=== PATIENT | male | born 1970 | race Caucasian/White ===

== ENCOUNTER 2017-05-19 13:33 | Inpatient (IN) | payer OTHER ==
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
[2017-05-19] MEDS: ONDANSETRON 4 MG/2 ML VIAL IVP PRN ×2 (13:45→22:42)
[2017-05-19 13:55] LABS: PLATELET COUNT 158 10^3/uL (150-400)
[2017-05-19 14:05] LABS: INR 1.12 (0.83-1.16); PROTIME(PATIENT) 14.6 SEC (12.0-15.0)
[2017-05-19] MEDS ORDERED: levETIRAcetam 1000MG/NACL 100 ML IV ONE (14:48)
[2017-05-19] MEDS ORDERED: NALOXONE HCL 0.4 MG/ML INJ IVP PRN (14:48)
[2017-05-19] MEDS ORDERED: LORazepam 2 MG/ML INJ IVP PRN (14:48)
[2017-05-19] MEDS ORDERED: TDAP ADULT 0.5 ML INJ (BOOSTRIX) IM ONE ×2 (14:53→14:55)
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
[2017-05-19] MEDS: NS 1,000 ML IV SCH (15:40)
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
[2017-05-19] MEDS: POTASSIUM Cl (KCl) 100 ML IV SCH ×3 (16:01→18:19)
[2017-05-19] MEDS: PANTOPRAZOLE SODIUM 40 MG VIAL IVP SCH (16:01)
[2017-05-19] MEDS: HYDROmorphONE/DILAUDID 1 MG/ML INJ IVP PRN ×3 (16:39→20:42)
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
[2017-05-19] MEDS ORDERED: DEXAMETHASONE 10 MG/ML VIAL IVP ONE (18:58)
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
[2017-05-19] MEDS: levETIRAcetam 500MG/NACL 100 ML IV SCH (20:43)
[2017-05-19 21:12] LABS: PLATELET COUNT 143 10^3/uL (150-400)
[2017-05-19] MEDS: ACETAMINOPHEN 650 MG SUPP PR PRN (22:32)
[2017-05-20] MEDS: HYDROmorphONE/DILAUDID 1 MG/ML INJ IVP PRN ×2 (02:00→07:04)
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
[2017-05-20] MEDS: ACETAMINOPHEN 650 MG SUPP PR PRN ×2 (07:05→15:09)
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
[2017-05-20] MEDS: levETIRAcetam 500MG/NACL 100 ML IV SCH ×2 (10:32→21:08)
[2017-05-20] MEDS: PANTOPRAZOLE SODIUM 40 MG VIAL IVP SCH (10:32)
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
--- NOTE | 2017-05-20 14:19 | ASMTCMCOM ---
CM Note CM Note Notes: Therapies recommending In-pt Rehab. Spoke to patient's re: In-pt Rehab. Family lives in [place]. Gave her info about [facility] and [facility]'s location in [place]. [facility] is following. [facility] contact: Shayy [phone]; . to make a decision before referrals will be sent. Date Signed: 05/20/2017 02:18 PM Electronically Signed By:Caridad Lala LCSW
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
[2017-05-20] MEDS: NS 1,000 ML IV SCH (15:09)
[2017-05-20] MEDS: HYDROmorphone HCL/NS 0.5 MG/ML SYR IVP PRN ×2 (19:16→21:08)
[2017-05-20] MEDS: ONDANSETRON 4 MG/2 ML VIAL IVP PRN (19:16)
[2017-05-20] MEDS: ACETAMINOPHEN 325 MG TAB PO PRN (21:08)
[2017-05-21] MEDS: NS 1,000 ML IV SCH ×3 (04:50→20:46)
[2017-05-21] MEDS: ACETAMINOPHEN 325 MG TAB PO PRN ×4 (05:13→20:46)
[2017-05-21] MEDS: ONDANSETRON 4 MG/2 ML VIAL IVP PRN (05:13)
[2017-05-21] MEDS: HYDROmorphone HCL/NS 0.5 MG/ML SYR IVP PRN ×3 (05:13→23:35)
[2017-05-21] MEDS ORDERED: BISACODYL 10 MG SUPP PR PRN (08:37)
[2017-05-21] MEDS ORDERED: LACTULOSE 20 GM/30 ML UDCUP PO PRN (08:37)
[2017-05-21] MEDS ORDERED: POLYETHYLENE GLYCOL 3350 17 GM PKT PO PRN (08:37)
[2017-05-21] MEDS ORDERED: MAGNESIUM HYDROXIDE 30 ML UDCUP PO PRN (08:37)
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
[2017-05-21] MEDS: PANTOPRAZOLE SODIUM 40 MG VIAL IVP SCH (08:41)
[2017-05-21] MEDS: levETIRAcetam 500MG/NACL 100 ML IV SCH (08:41)
[2017-05-21] MEDS: SENNOSIDES/DOCUSATE SODIUM TAB PO SCH ×2 (09:06→20:47)
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
[2017-05-21] MEDS: ENOXAPARIN 40 MG/0.4 ML SYR SC SCH (15:55)
--- NOTE | 2017-05-21 17:13 | ASMTCMCOM ---
CM Note CM Note Notes: has decided that she would like patient to go to [facility]. That info given to [facility] admissions. Date Signed: 05/21/2017 05:12 PM Electronically Signed By:Caridad Lala LCSW
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
[2017-05-21] MEDS: levETIRAcetam 500 MG TAB PO SCH (20:46)
[2017-05-22] MEDS: ACETAMINOPHEN 325 MG TAB PO PRN ×4 (02:49→23:11)
[2017-05-22] MEDS: NS 1,000 ML IV SCH (05:54)
--- NOTE | 2017-05-22 07:20 | NEUSURGPN ---
Assessment/Plan: Assessment: 46 yo male that is s/p fall while skiing with temporal and petrous skull fracture Plan: -s/p fall/CHI with skull fractures-no mass effect -neuro stable-awake and alert x 3, GCS 15 -PT/OT/ST -repeat CT head stable -no further CTs at this time -other facial/ortho/rib injuries -trauma on board as primary -OK to transfer to rehab today -call with any questions or concerns -d/w Dr Ying Subjective: Awake and alert. NAD. Eating/drinking and voiding. No f/c/n/v/d. Objective: AAOx3 bilateral eyelid ecchymosis CN II-XII Grossly intact OD reactive but sluggish OS equal and reactive MAEx4 Motor 5/5 BUE/BLE C collar on Neuro Check Frequency: per routine Urinary Catheter in Place: No Catheter Insertion Date: 05/19/17 - Physician Discussed Patient with Dr.: Ying Neurosurgery Physical Exam - Vitals, I&O, Labs I and O 05/21/17 05/22/17 05/23/17 05:59 05:59 05:59 Intake Total 2680 3223 Output Total 2310 350 Balance 370 2873 Intake: Oral (ml) 240 650 IV Infused (ml) 2440 2573 Ns 1,000 ml @ 100 mls/hr 2440 2573 IV CONT PETAR Rx#: [id number] Output: Urine (ml) 2310 350 Catheter 2310 350 Other: Intake Quantity Yes Sufficient Number of Voids Toilet 3 Number of Stools Toilet 0 Vital Signs Temp Pulse Resp BP Pulse Ox 37.2 C 76 12 136/95 H 91 L 05/22/17 04:00 05/22/17 06:00 05/22/17 06:00 05/22/17 06:00 05/22/17 06:00 Laboratory Results 05/20/17 04:00 05/20/17 04:00 ICD10 Worksheet Patient Problems: Problems Problem Status Onset Cervical transverse process fracture Acute Facial fracture Acute Rib fracture Acute Skull fracture Acute
--- NOTE | 2017-05-22 07:45 | TRAUMAPN ---
- Problem/Surgery Performed (1) Injury due to skiing accident Qualifiers: Encounter type: initial encounter Qualified Code(s): V00.328A - Other snow- ski accident, initial encounter Assessment/Plan: multiple injuries including skull fracture, facial fracture, SAH with pneumocephalus, cervical/thoracic TP fx, right rib fx 1-2 with resolved pneumothorax Clinically improving Rehab consult pending/stable for transfer from neuro/trauma surgery viewpoint will transfer to SDU and increase activity PT/OT as tolerated continue soft diet because of fx through right TMJ Subjective: awake/able to answer questions appropriately at bedside Objective: Vital Signs Temp Pulse Resp BP Pulse Ox 37.2 C 76 12 136/95 H 91 L 05/22/17 04:00 05/22/17 06:00 05/22/17 06:00 05/22/17 06:00 05/22/17 06:00 Laboratory Results 05/20/17 04:00 05/20/17 04:00 05/21/17 05/22/17 05/23/17 05:59 05:59 05:59 Intake Total 2680 3223 Output Total 2310 350 Balance 370 2873 PT 14.6 SEC (12.0-15.0) 05/19/17 13:48 INR 1.12 (0.83-1.16) 05/19/17 13:48 - C-Spine Clearance Cervical Spine Cleared: No Physical Exam - Physical Exam General Appearance: other (somnolent/answers questions appropriately) EENT: other (right facial swelling/periorbital ecchymosis/) Neck: other (remains in hard collar) Respiratory: chest non-tender, lungs clear, decreased breath sounds Cardiac/Chest: normal peripheral pulses, regular rate, rhythm, tachycardia Abdomen: normal bowel sounds, non-tender, soft, distended Male Genitalia: deferred Rectal: deferred Skin: normal color, warm/dry Extremities: normal range of motion, non-tender Neuro/Psych: no motor/sensory deficits, oriented x 3, depressed affect, other ( amnestic for events/detailed cognitive evaluation not performed)
[2017-05-22] MEDS: PANTOPRAZOLE SODIUM 40 MG TAB PO SCH (09:29)
[2017-05-22] MEDS: ENOXAPARIN 40 MG/0.4 ML SYR SC SCH (09:29)
[2017-05-22] MEDS: levETIRAcetam 500 MG TAB PO SCH ×2 (09:29→20:44)
[2017-05-22] MEDS: SENNOSIDES/DOCUSATE SODIUM TAB PO SCH ×2 (09:30→20:44)
[2017-05-22 10:28] LABS: PLATELET COUNT 103 10^3/uL (150-400)
--- NOTE | 2017-05-22 13:36 | ASMTCMCOM ---
CM Note CM Note Notes: Patient is ready to go to inpatient rehab. We are waiting on insurance authorization. Bridgett Novoa will call as soon as she hears from them. CM will follow. Date Signed: 05/22/2017 01:35 PM Electronically Signed By:Radha Dempsey LCSW
--- NOTE | 2017-05-22 15:32 | ASMTCMCOM ---
CM Note CM Note Notes: Bridgett from inpatient rehab called and she did get the insurance auth for patient. Patient is not feeling well today and states he would like to go tomorrow. Dr. Pepper was informed patient has been authorized for inpatient rehab. Dr. Pepper will meet with patient in the morning and patient will most likely transfer in the morning. Transport will be set up when we have the transfer of care summary. CM will follow. Date Signed: 05/22/2017 03:31 PM Electronically Signed By:Radha Dempsey LCSW
--- NOTE | 2017-05-22 17:16 | SOAPPROG ---
SOAP Progress Note Assessment/Plan: Assessment: Pt with multiple R sided facial fractures. R minimally displaced tripod. It is very minimally rotated. Talked with pt and about obs vs. surgery. I tend to think it will heal well on its own without a significant malar depression. We elected to wait for now. Should f/u with me in 1 week (assuming out of rehab) for re-eval. Temporal bone fx: audio done today, showed normal hearing on the R, and a mild to mod CHL on the L with a type C tymp on this side. Likely related to hemotympanum on that side. WRS excellent Au. Rec repeat audio in a month. Also needs to do soft diet for comfort x 6 weeks, would rec not sleeping on R side for a month or so also. He is on abx and rec continue for a week total d/t sinus fxs. I think would be reasonable to see optho again within a few weeks to recheck. Please call with any other questions or concerns. Plan: 05/22/17 17:11 05/22/17 17:20 Subjective: Doing better, still with pain in face and neck. c/o muffled hearing on the L. Denies sig diplopia. Says sometimes feels a little blurry on R. Opening jaw ok, though mild pain Objective: AFVSS 1L, 100% sats R ecchymosis and edema though latter sig improved FN intact OP clear, class I occlusion No significant malar depression on the R. ecchymosis of R periorbital region, seems to have some mild proptosis. EOMI, no pain with eye movement Attempted 512k TF: at first seemed to lateralize to the R then said wasn't sure. + rinne AU Vital Signs Temp Pulse Resp BP Pulse Ox 37.1 C 76 18 143/71 H 98 05/22/17 16:00 05/22/17 16:00 05/22/17 16:00 05/22/17 16:00 05/22/17 16:00 Laboratory Results 05/22/17 09:40 05/22/17 09:40 05/21/17 05/22/17 05/23/17 05:59 05:59 05:59 Intake Total 2680 3223 Output Total 2310 350 Balance 370 2873 PT 14.6 SEC (12.0-15.0) 02/18/18 13:48 INR 1.12 (0.83-1.16) 05/19/17 13:48 ICD10 Worksheet Patient Problems: Problems Problem Status Onset Cervical transverse process fracture Acute Facial fracture Acute Injury due to skiing accident Acute Rib fracture Acute Skull fracture Acute
--- NOTE | 2017-05-22 17:40 | SOAPPROG ---
Downtime Inpatient MD Late Entry SOAP Note: Hct down to 31.7 from 37.9 No active ongoing blood loss will check CXR to exclude delayed right hemothorax S MD Shantelle, FACS
[2017-05-22] MEDS ORDERED: AMOXICILLIN/CLAVULANATE POT 875/125 MG TAB PO SCH (21:00)
[2017-05-23] MEDS: ACETAMINOPHEN 325 MG TAB PO PRN (06:23)
[2017-05-23] MEDS: NS 1,000 ML IV SCH (06:23)
[2017-05-23 07:48] VITALS: BP 146/91; PULSE 74; RESP 13; TEMP 98.4; O2SAT 95
--- NOTE | 2017-05-23 07:51 | PDIAF ---
- Diagnosis Diagnosis: facial trauma, SAH, skull fracture, rib fractures, orbital wall fractures Code Status: Full Code - Medication Management Discharge Medications: Medications to Continue on Transfer NK [No Known Home Meds] 05/19/17 [Last Taken Unknown] Discharge Medications: Refer to the Discharge Home Medication list for PRN reason. - Orders Services needed: Registered Nurse, Certified Home School Teacher, Physical Therapy, Occupational Therapy Diet Texture: Dysphagia 2 - Mechanically Altered - Chopped, Ground, Dysphagia 1 - Pureed, Thin Liquids - Follow Up Care Current Providers and Referrals: Patient,NotPresent [Primary Care Provider] - As per Instructions Laura Stephens MD [Medical Doctor] - follow up in 1 week Jonathan Friedman MD [Medical Doctor] - follow up in 1 week Jani Arvizu MD [Medical Doctor] - (as needed if issues ) Oleksandr Ying MD [Medical Doctor] - (call if any persistent headache or neurological issues )
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
--- NOTE | 2017-05-23 08:32 | PDIAF ---
- Diagnosis Diagnosis: facial trauma, SAH, skull fracture, rib fractures, orbital wall fractures Code Status: Full Code - Medication Management Discharge Medications: Medications to Continue on Transfer Acetaminophen [Tylenol 325mg (*)] 650 mg PO Q6H PRN tab 05/23/17 [Last Taken Unknown] Enoxaparin [Lovenox 40 MG (*)] 40 mg SC DAILY syr 05/23/17 [Last Taken Unknown] LORazepam [Ativan inj 2 mg/ml (*)] 1 - 2 mg IVP Q2HRS PRN inj 05/23/17 [Last Taken Unknown] Ondansetron HCl Pf [Zofran 4 mg Inj (*)] 4 mg IVP Q4HRS PRN vial 05/23/17 [ Last Taken Unknown] Polyethylene Glycol 3350 [Miralax 17 gm (*)] 17 gm PO DAILY PRN pkt 05/23/17 [ Last Taken Unknown] Sennosides/Docusate Sodium [Senokot-S] 1 - 2 tab PO BID tab 05/23/17 [Last Taken Unknown] levETIRAcetam [Keppra 500 mg (*)] 500 mg PO BID tab 05/23/17 [Last Taken Unknown] Discharge Medications: Refer to the Discharge Home Medication list for PRN reason. - Orders Services needed: Registered Nurse, Certified Model Builder, Physical Therapy, Occupational Therapy Diet Texture: Dysphagia 2 - Mechanically Altered - Chopped, Ground, Dysphagia 1 - Pureed, Thin Liquids - Follow Up Care Current Providers and Referrals: Oleksandr Ying MD [Medical Doctor] - (call if any persistent headache or neurological issues ) Jani Arvizu MD [Medical Doctor] - (as needed if issues ) Laura Stephens MD [Medical Doctor] - follow up in 1 week Patient,NotPresent [Primary Care Provider] - As per Instructions Jonathan Friedman MD [Medical Doctor] - follow up in 1 week
[2017-05-23] MEDS: PANTOPRAZOLE SODIUM 40 MG TAB PO SCH (09:02)
[2017-05-23] MEDS: levETIRAcetam 500 MG TAB PO SCH (09:02)
[2017-05-23] MEDS: SENNOSIDES/DOCUSATE SODIUM TAB PO SCH (09:02)
[2017-05-23] MEDS: ENOXAPARIN 40 MG/0.4 ML SYR SC SCH (09:03)
[2017-05-25] MEDS ORDERED: LIDOCAINE 4%/MENTHOL 1% PATCH TD SCH (11:30)
[2017-05-25] MEDS ORDERED: PATCH REMOVAL 1 EA PATCH TD SCH (21:00)
== END 2017-05-23 11:15 | DRG 964 ==
LOC: EDAGE → EDBD 13:33 → F2N 15:03
PROVIDERS: ADMIT Surgery; ATTEND Surgery
DX: S06.6X9A Traumatic subarachnoid hemorrhage with loss of consciousness of unspecified duration, initial encounter (principal); S02.19XA Other fracture of base of skull, initial encounter for closed fracture; S12.500A Unspecified displaced fracture of sixth cervical vertebra, initial encounter for closed fracture; S12.600A Unspecified displaced fracture of seventh cervical vertebra, initial encounter for closed fracture; S22.019A Unspecified fracture of first thoracic vertebra, initial encounter for closed fracture; S22.029A Unspecified fracture of second thoracic vertebra, initial encounter for closed fracture; S22.039A Unspecified fracture of third thoracic vertebra, initial encounter for closed fracture; S22.079A Unspecified fracture of T9-T10 vertebra, initial encounter for closed fracture; S22.41XA Multiple fractures of ribs, right side, initial encounter for closed fracture; S27.1XXA Traumatic hemothorax, initial encounter; S02.81XA Fracture of other specified skull and facial bones, right side, initial encounter for closed fracture; S02.40DA Maxillary fracture, left side, initial encounter for closed fracture; R40.2411 Glasgow coma scale score 13-15, in the field [EMT or ambulance]; V00.322A Snow-skier colliding with stationary object, initial encounter; Y92.838 Other recreation area as the place of occurrence of the external cause; Y93.23 Activity, snow (alpine) (downhill) skiing, snowboarding, sledding, tobogganing and snow tubing
CPT/HCPCS: 82947-QW; 92523-GN; 92610-GN; 97112-GP; 97116-GP; 97162-GP; 97166-GO; 97535-GO; G0480; J1100; J1170; J1650; J1953; J2060; J2405; J3480; L0172

== ENCOUNTER 2017-05-22 14:59 | Inpatient (IN) | payer OTHER ==
[2017-05-23] MEDS ORDERED: BISACODYL 10 MG SUPP PR PRN (12:23)
[2017-05-23] MEDS: traMADol 50 MG TAB PO PRN ×3 (13:27→21:57)
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
--- NOTE | 2017-05-23 14:02 | PDOREHIP ---
Admission [facility] - Admission - 3 Day Assessment Period Admission Date/Day 1: 05/23/17 Day 2: 05/24/17 Day 3: 05/25/17 - Active Diagnoses Comorbidities and Co-existing Conditions at Admission: 38107. None of the Above - Skin Conditions Unhealed Pressure Ulcer (1 or more/Stage 1 or >)-Admission: 0. No
[2017-05-23] MEDS ORDERED: POLYETHYLENE GLYCOL 3350 17 GM PKT PO PRN (14:29)
[2017-05-23] MEDS ORDERED: traZODone 50 MG TAB PO PRN (14:32)
[2017-05-23] MEDS: ACETAMINOPHEN 325 MG TAB PO PRN (15:55)
[2017-05-23] MEDS: levETIRAcetam 500 MG TAB PO SCH (20:52)
[2017-05-24] MEDS: ACETAMINOPHEN 325 MG TAB PO PRN ×4 (01:02→22:30)
[2017-05-24] MEDS: traMADol 50 MG TAB PO PRN (01:43)
[2017-05-24] MEDS ORDERED: traMADol 50 MG TAB PO ONE (02:30)
[2017-05-24] MEDS: ONDANSETRON DISINTEGRATING 4 MG TAB PO PRN ×2 (03:04→16:12)
[2017-05-24] MEDS ORDERED: oxyCODONE IR 5 MG TAB PO PRN (05:42)
[2017-05-24] MEDS ORDERED: ONDANSETRON DISINTEGRATING 4 MG TAB PO ONE (08:30)
[2017-05-24] MEDS ORDERED: oxyCODONE IR 5 MG TAB PO ONE (08:30)
[2017-05-24] MEDS: levETIRAcetam 500 MG TAB PO SCH ×2 (09:14→20:19)
--- NOTE | 2017-05-24 09:21 | SOAPPROG ---
SOAP Progress Note Assessment/Plan: Assessment: 46-year-old man with balance and coordination deficits following traumatic brain injury, subarachnoid hemorrhages, and facial and cervical and thoracic spinal transverse process fractures on 05/19/2017: * Debility with balance and gait impairment following TBI, affecting mobility and ADLs. * PT and OT to optimize mobility and activities of daily living, towards the independent or modified independent level for discharge to home. * Cognitive effects of TBI: * Assessment and treatment per Speech and Language Pathology. * He will have a low stimulation and he will be encouraged to have adequate brain rest and adequate sleep. * Pain management: * Inadequate pain control with tramadol and acetaminophen. * Tramadol may be causing vomiting. * Initiated oxycodone 05/21/2017.. * Will start amitriptyline tonight, 05/24/2017, to improve sleep and as headache prophylaxis. Stable conditions: * Cervical and thoracic transverse process fractures. * Continue cervical collar until cleared by Neurosurgery; likely 6 weeks. * Temporal bone fractures. Pureed diet. Follow up with Otolaryngology after his discharge. * Orbital wall fractures with no ocular injury. He denies diplopia. Follow up with Ophthalmology after discharge. * Headache, nausea and vomiting morning of 05/24/2017. Sent for head CT which ruled out worsening intracranial hemorrhage. * Anemia, likely due to extensive bruising plus hydration. * Improving on CBC 2 06/18/2017. * Thrombocytopenia, which has been progressive. * Resolved on CBC 2 06/18/2017. * Prophylaxis. He does not have hemiplegia or paralysis, and he has been mobile reportedly ambulating up to 300 feet. He is on enoxaparin as ordered out of the hospital. Will . continue anticoagulation until he is consistently ambulating 150 feet or more 3 times a day or more. In an otherwise young healthy man, there is no indication for GI prophylaxis. Followup after discharge with neurosurgeon, Dr. Ying; natural resource technician, Dr. Stephens; and barrel raiser, Dr. Friedman. 05/24/17 11:30 Subjective: Had pain overnight which interfered with sleep. Pain is a throbbing headache as well as right-sided facial pain and neck pain. Also had nausea, and vomited large quantities this morning. Oxycodone was added for improved pain control this morning. He is not aware of any specific neurologic change however he feels fatigued. No abdominal pain. No fevers, chills, cough, dyspnea. Objective: Vital Signs Temp Pulse Resp BP Pulse Ox 36.6 C 59 L 16 152/88 H 91 L 05/24/17 09:10 05/24/17 09:10 05/24/17 09:10 05/24/17 09:10 05/24/17 09:10 05/23/17 05/24/17 05/25/17 05:59 05:59 05:59 Intake Total 925 Output Total 500 Balance 425 - Time Spent With Patient Time Spent With Patient: Greater than 35 min floor time today including coordination of care, review of head CT result and counseling patient and family. Physical Exam - Physical Exam General Appearance: WD/WN, alert, no apparent distress Respiratory: normal breath sounds, decreased breath sounds (RLL), No crackles, No rhonchi, No wheezing Cardiac/Chest: regular rate, rhythm, No edema, No diastolic murmur, No systolic murmur Skin: normal color, warm/dry, other (Extensive bruising especially over right side of face. Right upper and lower eyelids with ecchymosis and swelling, and the ptosis due to swelling.) Neuro/Psych: no motor/sensory deficits, alert, normal mood/affect, other (No pronator drift), No abnormal advice nurse II-XII, No aphasia ICD10 Worksheet Patient Problems: Problems Problem Status Onset Cervical transverse process fracture Acute Facial fracture Acute Injury due to skiing accident Acute Rib fracture Acute Skull fracture Acute
[2017-05-24 10:09] LABS: PLATELET COUNT 154 10^3/uL (150-400)
[2017-05-24] MEDS: ENOXAPARIN 40 MG/0.4 ML SYR SC SCH (11:22)
[2017-05-24] MEDS: oxyCODONE IR 5 MG TAB PO PRN ×3 (12:52→19:33)
[2017-05-24] MEDS: SENNOSIDES/DOCUSATE SODIUM TAB PO PRN ×2 (16:13→20:18)
[2017-05-24] MEDS: AMITRIPTYLINE HCL 25 MG TAB PO SCH (20:19)
[2017-05-24] MEDS ORDERED: AMITRIPTYLINE HCL 50 MG TAB PO SCH (21:00)
[2017-05-25] MEDS: oxyCODONE IR 5 MG TAB PO PRN ×5 (05:44→23:28)
[2017-05-25] MEDS: ACETAMINOPHEN 325 MG TAB PO PRN ×3 (05:44→19:14)
[2017-05-25] MEDS: SENNOSIDES/DOCUSATE SODIUM TAB PO PRN ×2 (08:40→20:18)
[2017-05-25] MEDS: levETIRAcetam 500 MG TAB PO SCH ×2 (08:40→20:12)
[2017-05-25] MEDS: ENOXAPARIN 40 MG/0.4 ML SYR SC SCH (08:40)
--- NOTE | 2017-05-25 10:54 | SOAPPROG ---
SOAP Progress Note Assessment/Plan: A/P 46-year-old man with balance and coordination deficits following traumatic brain injury, subarachnoid hemorrhages, and facial and cervical and thoracic spinal transverse process fractures on 05/19/2017: * Debility with balance and gait impairment following TBI, affecting mobility and ADLs. * PT and OT to optimize mobility and activities of daily living, towards the independent or modified independent level for discharge to home. * Cognitive effects of TBI: * Assessment and treatment per Speech and Language Pathology. * He will have a low stimulation and he will be encouraged to have adequate brain rest and adequate sleep. * Pain management: * Inadequate pain control with tramadol and acetaminophen. * Tramadol may be causing vomiting. * Initiated oxycodone 05/21/2017.. * Will start amitriptyline tonight, 05/24/2017, to improve sleep and as headache prophylaxis. Stable conditions: * Cervical and thoracic transverse process fractures. * Continue cervical collar until cleared by Neurosurgery; likely 6 weeks. * Temporal bone fractures. Pureed diet. Follow up with Otolaryngology after his discharge. * Orbital wall fractures with no ocular injury. He denies diplopia. Follow up with Ophthalmology after discharge. * Headache, nausea and vomiting morning of 05/24/2017. Sent for head CT which ruled out worsening intracranial hemorrhage. * Anemia, likely due to extensive bruising plus hydration. * Improving on CBC 2 06/18/2017. * Thrombocytopenia, which has been progressive. * Resolved on CBC 2 06/18/2017. * Prophylaxis. He does not have hemiplegia or paralysis, and he has been mobile reportedly ambulating up to 300 feet. He is on enoxaparin as ordered out of the hospital. Will . continue anticoagulation until he is consistently ambulating 150 feet or more 3 times a day or more. In an otherwise young healthy man, there is no indication for GI prophylaxis. Followup after discharge with neurosurgeon, Dr. Ying; whip operator, Dr. Stephens; and pelt inspector, Dr. Friedman. Today's Plan - Pt working well with therapy - Having some increased pain at times especially when laying flat - just feels like all the fractures start ' swelling' . reviewed pt's Head CT and no new concerning changes with regards to fx/ hydrocephalus per the report. Will add lidoderm patches for his spine area to see if this helps with some of the pain. 05/25/17 10:50 Subjective: Feeling pretty good overall - The pain is intermittent and can get pretty bad. The nausea seems to be better than it was. no new neurologic changes. Has a pretty good appetite. no fevers/chills. Objective: Vital Signs Temp Pulse Resp BP Pulse Ox 36.8 C 68 20 153/95 H 91 L 05/25/17 06:58 05/25/17 06:58 05/25/17 06:58 05/25/17 06:58 05/25/17 06:58 Laboratory Results 05/24/17 08:05 05/24/17 05/25/17 05/26/17 05:59 05:59 05:59 Intake Total 925 536 160 Output Total 500 Balance 425 536 160 Physical Exam - Physical Exam General Appearance: alert, no apparent distress EENT: other (multiple ecchymosis over his face) Respiratory: lungs clear, normal breath sounds Abdomen: non-tender, soft Neuro/Psych: alert, normal mood/affect ICD10 Worksheet Patient Problems: Problems Problem Status Onset Cervical transverse process fracture Acute Facial fracture Acute Injury due to skiing accident Acute Rib fracture Acute Skull fracture Acute
[2017-05-25] MEDS: ONDANSETRON DISINTEGRATING 4 MG TAB PO PRN (19:26)
[2017-05-25] MEDS: AMITRIPTYLINE HCL 25 MG TAB PO SCH (20:12)
[2017-05-26] MEDS: oxyCODONE IR 5 MG TAB PO PRN ×2 (05:29→12:45)
[2017-05-26] MEDS: ENOXAPARIN 40 MG/0.4 ML SYR SC SCH (08:25)
[2017-05-26] MEDS: POLYETHYLENE GLYCOL 3350 17 GM PKT PO SCH (08:25)
[2017-05-26] MEDS: levETIRAcetam 500 MG TAB PO SCH ×2 (08:25→20:34)
[2017-05-26] MEDS: ACETAMINOPHEN 325 MG TAB PO PRN ×2 (08:27→15:25)
[2017-05-26] MEDS ORDERED: SENNOSIDES 1 TAB PO SCH (09:00)
--- NOTE | 2017-05-26 09:36 | SOAPPROG ---
SOAP Progress Note Assessment/Plan: A/P 46-year-old man with balance and coordination deficits following traumatic brain injury, subarachnoid hemorrhages, and facial and cervical and thoracic spinal transverse process fractures on 05/19/2017: * Debility with balance and gait impairment following TBI, affecting mobility and ADLs. * PT and OT to optimize mobility and activities of daily living, towards the independent or modified independent level for discharge to home. * Cognitive effects of TBI: * Assessment and treatment per Speech and Language Pathology. * He will have a low stimulation and he will be encouraged to have adequate brain rest and adequate sleep. * Pain management: * Inadequate pain control with tramadol and acetaminophen. * Tramadol may be causing vomiting. * Initiated oxycodone 05/21/2017.. * Will start amitriptyline tonight, 05/24/2017, to improve sleep and as headache prophylaxis. Stable conditions: * Cervical and thoracic transverse process fractures. * Continue cervical collar until cleared by Neurosurgery; likely 6 weeks. * Temporal bone fractures. Pureed diet. Follow up with Otolaryngology after his discharge. * Orbital wall fractures with no ocular injury. He denies diplopia. Follow up with Ophthalmology after discharge. * Headache, nausea and vomiting morning of 05/24/2017. Sent for head CT which ruled out worsening intracranial hemorrhage. * Anemia, likely due to extensive bruising plus hydration. * Improving on CBC 2 06/18/2017. * Thrombocytopenia, which has been progressive. * Resolved on CBC 2 06/18/2017. * Prophylaxis. He does not have hemiplegia or paralysis, and he has been mobile reportedly ambulating up to 300 feet. He is on enoxaparin as ordered out of the hospital. Will . continue anticoagulation until he is consistently ambulating 150 feet or more 3 times a day or more. In an otherwise young healthy man, there is no indication for GI prophylaxis. Followup after discharge with neurosurgeon, Dr. Ying; blender machine operator, Dr. Stephens; and medical services coordinator, Dr. Friedman. Today's Plan - will add relistor today if patient is unable to have a bm- likely secondary to combination but also induced by recent change to opioids. Pt reporting some WAHL although this is responding to pain meds and position management. No associated with new neurologic changes - Will talk with Surgeon on Saturday about consideration of adding NSAIDS as this may be more beneficial for many aspects of his pain 05/26/17 09:32 Subjective: Doing Ok right now - Had a little rougher night but also had a busy day with many visitors yesterday. Realizing the importance of keeping the environment a little quieter. Having some WHAL's - Seem to be more of a "bone achiness" on the right side of his head. Objective: Vital Signs Temp Pulse Resp BP Pulse Ox 36.8 C 70 18 155/95 H 94 05/26/17 06:59 05/26/17 06:59 05/26/17 06:59 05/26/17 06:59 05/26/17 06:59 Laboratory Results 05/24/17 08:05 05/25/17 05/26/17 05/27/17 05:59 05:59 05:59 Intake Total 536 520 236 Balance 536 520 236 Physical Exam - Physical Exam General Appearance: alert, no apparent distress EENT: other (ptosis of the right eyelid able to open slightly - per this is improved. ) Respiratory: lungs clear, normal breath sounds Cardiac/Chest: regular rate, rhythm Abdomen: normal bowel sounds, non-tender Skin: other (bruising on the right side of his face today) Neuro/Psych: normal mood/affect ICD10 Worksheet Patient Problems: Problems Problem Status Onset Cervical transverse process fracture Acute Facial fracture Acute Injury due to skiing accident Acute Rib fracture Acute Skull fracture Acute
[2017-05-26] MEDS: LIDOCAINE 4%/MENTHOL 1% PATCH TD SCH (12:40)
[2017-05-26] MEDS ORDERED: METHYLNALTREXONE BROMIDE 12 MG/0.6 ML INJ SC ONE (16:15)
[2017-05-26] MEDS: AMITRIPTYLINE HCL 25 MG TAB PO SCH (20:34)
[2017-05-26] MEDS: PATCH REMOVAL 1 EA PATCH TD SCH (20:46)
[2017-05-27] MEDS ORDERED: SENNOSIDES 1 TAB PO PRN (07:19)
[2017-05-27] MEDS: POLYETHYLENE GLYCOL 3350 17 GM PKT PO SCH (08:24)
[2017-05-27] MEDS: levETIRAcetam 500 MG TAB PO SCH ×2 (08:25→20:19)
[2017-05-27] MEDS: ENOXAPARIN 40 MG/0.4 ML SYR SC SCH (08:32)
[2017-05-27] MEDS: LIDOCAINE 4%/MENTHOL 1% PATCH TD SCH (10:00)
--- NOTE | 2017-05-27 12:50 | SOAPPROG ---
SOAP Progress Note Assessment/Plan: Assessment: 46-year-old man with balance and coordination deficits following traumatic brain injury, subarachnoid hemorrhages, and facial and cervical and thoracic spinal transverse process fractures on 05/19/2017: * Debility with balance and gait impairment following TBI, affecting mobility and ADLs. * Initial functional independence 93. Independent with bed mobility and transfers. Negotiated 18 stairs with 1 rail. Needs cues to stay on track. Does ADLs with supervision and self setup, needing cues. Needs assist to change cervical collars for showering. * Continue PT and OT to optimize mobility and activities of daily living, towards the independent or modified independent level for discharge to home. * Cognitive effects of TBI: * Mild to moderate decreased attention and executive function. * Continue speech and language pathology. * Pain management: * Adequate with p.r.n. Oxycodone. Using much less yesterday 05/26/2017 compared to previous days * Started amitriptyline tonight, 05/24/2017, to improve sleep and as headache prophylaxis. * Calf tenderness. Get ultrasound to rule out DVT. Stable conditions: * Cervical and thoracic transverse process fractures. * Continue cervical collar until cleared by Neurosurgery; likely 6 weeks. * Temporal bone fractures. Pureed diet. Follow up with Otolaryngology after his discharge. * Orbital wall fractures with no ocular injury. He denies diplopia. Follow up with Ophthalmology after discharge. * Headache, nausea and vomiting morning of 05/24/2017. Sent for head CT which ruled out worsening intracranial hemorrhage. * Anemia, likely due to extensive bruising plus hydration. * Improving on CBC 2 06/18/2017. * Thrombocytopenia, which has been progressive. * Resolved on CBC 2 06/18/2017. * Prophylaxis. He does not have hemiplegia or paralysis, and he has been mobile reportedly ambulating up to 300 feet. He is on enoxaparin as ordered out of the hospital. Will . continue anticoagulation until he is consistently ambulating 150 feet or more 3 times a day or more. In an otherwise young healthy man, there is no indication for GI prophylaxis. Followup after discharge with neurosurgeon, Dr. Ying; clearing house clerk, Dr. Stephens; and mutual fund accountant, Dr. Friedman. Attended staffing, 15 min. Discussed with case management, nursing, dietitian, PT, OT, MIXING MACHINE ATTENDANT. Set discharge date for 05/29/2017. Will have outpatient MIXING MACHINE ATTENDANT regarding cognition and OT regarding shoulder pain and range of motion. 05/27/17 12:43 Subjective: Complains of left calf thigh and buttock pain. It feels better when he gets up and moves, worse with prolonged sitting or lying down. No cough or dyspnea, no fevers or chills. Has facial pain and feels that his teeth are sensitive especially the right maxillary teeth. Objective: Vital Signs Temp Pulse Resp BP Pulse Ox 36.6 C 72 14 126/90 H 91 L 05/27/17 08:00 05/27/17 08:00 05/27/17 08:00 05/27/17 08:00 05/27/17 08:00 Laboratory Results 05/24/17 08:05 05/26/17 05/27/17 05/28/17 05:59 05:59 05:59 Intake Total 520 893 150 Balance 520 893 150 - Time Spent With Patient Time Spent With Patient: Greater than 35 min staff time today, including more than 50% of time in coordination of care during staffing meeting, and counseling patient. Physical Exam - Physical Exam General Appearance: WD/WN, alert, no apparent distress Respiratory: No respiratory distress, No accessory muscle use Cardiac/Chest: No edema Skin: normal color, warm/dry Extremities: calf tenderness (On left) Neuro/Psych: no motor/sensory deficits, alert, normal mood/affect, oriented x 3 ICD10 Worksheet Patient Problems: Problems Problem Status Onset Cervical transverse process fracture Acute Facial fracture Acute Injury due to skiing accident Acute Rib fracture Acute Skull fracture Acute
[2017-05-27] MEDS: AMITRIPTYLINE HCL 25 MG TAB PO SCH (20:19)
[2017-05-27] MEDS: PATCH REMOVAL 1 EA PATCH TD SCH (20:22)
[2017-05-27] MEDS: ACETAMINOPHEN 325 MG TAB PO PRN (20:25)
[2017-05-28] MEDS: ENOXAPARIN 40 MG/0.4 ML SYR SC SCH (08:13)
[2017-05-28] MEDS: LIDOCAINE 4%/MENTHOL 1% PATCH TD SCH (08:14)
[2017-05-28] MEDS: POLYETHYLENE GLYCOL 3350 17 GM PKT PO SCH (08:45)
[2017-05-28] MEDS: levETIRAcetam 500 MG TAB PO SCH ×2 (08:45→20:02)
[2017-05-28] MEDS: ACETAMINOPHEN 325 MG TAB PO PRN (10:39)
[2017-05-28] MEDS: oxyCODONE IR 5 MG TAB PO PRN ×2 (11:31→20:03)
--- NOTE | 2017-05-28 13:18 | SOAPPROG ---
SOAP Progress Note Assessment/Plan: Assessment: 46-year-old man with balance and coordination deficits following traumatic brain injury, subarachnoid hemorrhages, and facial and cervical and thoracic spinal transverse process fractures on 05/19/2017: * Debility with balance and gait impairment following TBI, affecting mobility and ADLs. * Initial functional independence 93. Independent with bed mobility and transfers. Negotiated 18 stairs with 1 rail. Needs cues to stay on track. Does ADLs with supervision and self setup, needing cues. Needs assist to change cervical collars for showering. * Continue PT and OT to optimize mobility and activities of daily living, towards the independent or modified independent level for discharge to home. * Cognitive effects of TBI: * Mild to moderate decreased attention and executive function. * Continue speech and language pathology. * Pain management: * Adequate with p.r.n. Oxycodone. Used much less 05/26/2017 compared to previous days; increased pain lower extremities since 05/27/2017 c/w possible L- spine radiculopathy or stenosis. * Started amitriptyline 05/24/2017, to improve sleep and as headache prophylaxis. Sleep and WAHL improved. 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 * D/W Neurosurgery, Dr. Ying. Advises high-dose NSAID or dexamethasone. * Prescribed ibuprofen 800 mg Q 8 hr, first dose tonight 05/28/2017. * If no relief, will prescribe dexamethasone tomorrow and for several days afte discharge. * Calf tenderness. * Ultrasound ruled out DVT 05/27/2016. Hot flashes, chills and sweats. * No obvious signs or symptoms of infectious etiology. CBC with minimal elevation o fWBCs * Laboratory evaluation for infection or metabolic/hormonal abnormality: normal TSH, free T4, prolactin, testosterone, BMP. Stable conditions: * Cervical and thoracic transverse process fractures. * Continue cervical collar until cleared by Neurosurgery; likely 6 weeks. * Temporal bone fractures. Pureed diet. Follow up with Otolaryngology after his discharge. * Orbital wall fractures with no ocular injury. He denies diplopia. Follow up with Ophthalmology after discharge. * Headache, nausea and vomiting morning of 05/24/2017. Sent for head CT which ruled out worsening intracranial hemorrhage. * Anemia, likely due to extensive bruising plus hydration. * Improving on CBC 2 06/18/2017. * Thrombocytopenia, which has been progressive. * Resolved on CBC 2 06/18/2017. * Prophylaxis. He does not have hemiplegia or paralysis, and he has been mobile reportedly ambulating up to 300 feet. He is on enoxaparin as ordered out of the hospital. Will . continue anticoagulation until he is consistently ambulating 150 feet or more 3 times a day or more. In an otherwise young healthy man, there is no indication for GI prophylaxis. Followup after discharge with neurosurgeon, Dr. Ying; log peeler, Dr. Stephens; and ophthalmic technologist, Dr. Friedman. Attended staffing, 15 min. Discussed with case management, nursing, dietitian, PT, OT, GREY INSPECTOR. Set discharge date for 05/29/2017. Will have outpatient GREY INSPECTOR regarding cognition and OT regarding shoulder pain and range of motion. 05/27/17 12:43 05/28/17 13:07 05/28/17 21:20 Subjective: Complains of gluteal, posterior thigh a and posterior calf pain intermittently. Pain is worst with sitting. Standing and walking gives relief. Lying supine does not give relief. Does not notice loss of sensation or weakness. Also has had has been having hot flashes and sweats. Denies cough, dyspnea, nausea, vomiting, constipation, diarrhea, dysuria, or urinary frequency. Headaches overall are better. Generally sleeping well but awakens with pain in the lower extremities which is relieved after walking and then he can retain sleep. Objective: Vital Signs Temp Pulse Resp BP Pulse Ox 36.7 C 91 18 123/88 H 94 05/28/17 10:35 05/28/17 11:37 05/28/17 11:37 05/28/17 11:37 05/28/17 11:37 Laboratory Results 05/24/17 08:05 05/27/17 05/28/17 05/29/17 05:59 05:59 05:59 Intake Total 893 1548 118 Balance 893 1548 118 Physical Exam - Physical Exam General Appearance: WD/WN, alert, no apparent distress Respiratory: normal breath sounds, No crackles, No rhonchi, No wheezing Cardiac/Chest: regular rate, rhythm, No edema Abdomen: normal bowel sounds, non-tender, soft, No distended Back: Normal inspection, Other (Nontender over lumbar spine, sacrum.) Neuro/Psych: alert, normal mood/affect, oriented x 3, No abnormal gait, No motor weakness, No sensory deficit ICD10 Worksheet Patient Problems: Problems Problem Status Onset Cervical transverse process fracture Acute Facial fracture Acute Injury due to skiing accident Acute Rib fracture Acute Skull fracture Acute
[2017-05-28 15:34] LABS: PLATELET COUNT 243 10^3/uL (150-400)
--- NOTE | 2017-05-28 15:50 | PDOREHIP ---
Admission [facility] - Admission - 3 Day Assessment Period Admission Date/Day 1: 05/23/17 Day 2: 05/24/17 Day 3: 05/25/17 Discharge [facility] - Discharge - 3 Day Assessment Period 2 Days Prior to Anticipated Discharge Date: 05/27/17 1 Day Prior to Anticipated Discharge Date: 05/28/17 Anticipated Discharge Date: 05/29/17 - Discharge Skin Conditions Unhealed Pressure Ulcer (1 or more/Stage 1 or >)-Discharge: 0. No
[2017-05-28] MEDS: AMITRIPTYLINE HCL 25 MG TAB PO SCH (20:02)
[2017-05-28] MEDS: PATCH REMOVAL 1 EA PATCH TD SCH (20:12)
[2017-05-28] MEDS: IBUPROFEN 800 MG TAB PO SCH (21:35)
[2017-05-29] MEDS: IBUPROFEN 800 MG TAB PO SCH ×3 (05:32→20:57)
[2017-05-29] MEDS: POLYETHYLENE GLYCOL 3350 17 GM PKT PO SCH (08:20)
[2017-05-29] MEDS: levETIRAcetam 500 MG TAB PO SCH ×2 (08:20→20:55)
[2017-05-29] MEDS: LIDOCAINE 4%/MENTHOL 1% PATCH TD SCH (08:20)
[2017-05-29] MEDS: ENOXAPARIN 40 MG/0.4 ML SYR SC SCH (08:21)
[2017-05-29] MEDS: oxyCODONE IR 5 MG TAB PO PRN (12:13)
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
[2017-05-29] MEDS: AMITRIPTYLINE HCL 25 MG TAB PO SCH (20:55)
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
[2017-05-30] MEDS: oxyCODONE IR 5 MG TAB PO PRN ×2 (03:33→10:07)
[2017-05-30] MEDS: IBUPROFEN 800 MG TAB PO SCH (05:00)
[2017-05-30] MEDS: PATCH REMOVAL 1 EA PATCH TD SCH (05:00)
[2017-05-30 05:08] VITALS: BP 144/97; PULSE 66; RESP 16; TEMP 97.6; O2SAT 99
[2017-05-30] MEDS: LIDOCAINE 4%/MENTHOL 1% PATCH TD SCH (08:13)
[2017-05-30] MEDS: ENOXAPARIN 40 MG/0.4 ML SYR SC SCH (08:14)
[2017-05-30] MEDS: POLYETHYLENE GLYCOL 3350 17 GM PKT PO SCH (08:15)
[2017-05-30] MEDS: levETIRAcetam 500 MG TAB PO SCH (08:15)
== END 2017-05-30 10:22 | disposition still patient (30) | DRG 945 ==
LOC: BREH 05-23 11:40
PROVIDERS: ADMIT Internal Medicine; ATTEND Internal Medicine
PROC: F08Z7ZZ Vocational Activities and Functional Community or Work Reintegration Skills Treatment (ICD-10-PCS; principal; 2017-05-23)
PROC: F07M3ZZ Motor Function Treatment of Musculoskeletal System - Whole Body (ICD-10-PCS; principal; 2017-05-23)
PROC: F0636ZZ Communicative/Cognitive Integration Skills Treatment of Neurological System - Whole Body (ICD-10-PCS; principal; 2017-05-23)
DX: S06.5X9D Traumatic subdural hemorrhage with loss of consciousness of unspecified duration, subsequent encounter (principal); S02.109D Fracture of base of skull, unspecified side, subsequent encounter for fracture with routine healing; G03.9 Meningitis, unspecified; D69.6 Thrombocytopenia, unspecified; D64.9 Anemia, unspecified; R41.840 Attention and concentration deficit; R41.844 Frontal lobe and executive function deficit; S12.500D Unspecified displaced fracture of sixth cervical vertebra, subsequent encounter for fracture with routine healing; S12.600D Unspecified displaced fracture of seventh cervical vertebra, subsequent encounter for fracture with routine healing; S22.019D Unspecified fracture of first thoracic vertebra, subsequent encounter for fracture with routine healing; S22.029D Unspecified fracture of second thoracic vertebra, subsequent encounter for fracture with routine healing; S22.039D Unspecified fracture of third thoracic vertebra, subsequent encounter for fracture with routine healing; S22.41XD Multiple fractures of ribs, right side, subsequent encounter for fracture with routine healing; S02.40ED Zygomatic fracture, right side, subsequent encounter for fracture with routine healing; S02.31XD Fracture of orbital floor, right side, subsequent encounter for fracture with routine healing; S02.40CD Maxillary fracture, right side, subsequent encounter for fracture with routine healing; R26.81 Unsteadiness on feet; M79.662 Pain in left lower leg; R51 Headache; R11.2 Nausea with vomiting, unspecified; V00.322D Snow-skier colliding with stationary object, subsequent encounter; Y92.89 Other specified places as the place of occurrence of the external cause; Y93.23 Activity, snow (alpine) (downhill) skiing, snowboarding, sledding, tobogganing and snow tubing
CPT/HCPCS: 86022-90; 92507-GN; 92522-GN; 92610-GN; 97110-GP; 97112-GP; 97116-GP; 97162-GP; 97166-GO; 97530-GO; 97530-GP; 97535-GO; G0515-GO; J1650; J2212